=== PATIENT | male | born 1995 | race African-American/Black ===

== ENCOUNTER 2019-03-08 04:13 | Emergency (ER) | payer OTHER ==
[~2019-03-08] VITALS: Ht 188 cm; Wt 88.5 kg
[2019-03-08 04:08] VITALS: BP 150/89
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
[2019-03-08] MEDS ORDERED: Clindamycin 150mg cap ORAL ONE (04:15)
[2019-03-08] MEDS ORDERED: HYDROcodone/Acetamin 5/325 tab ORAL ONE (04:15)
[2019-03-08] MEDS ORDERED: CLINDAMYCIN HC300 MG ORAL (04:22)
[2019-03-08] MEDS ORDERED: IBUPROFEN600 MG ORAL (04:22)
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
[2019-03-08 04:30] VITALS: BP 145/88
--- NOTE | 2019-03-08 04:30 | NUR ---
Note undone in EDM - 03/08/19 at 0519 by DOMONIQUE ER DISCHARGE NOTE: Patient is cleared to be discharged per ERMD, pt is aox4, on room air, with stable vital signs. pt was given dc and prescription instructions, pt was able to verbalize understanding, pt id band removed. pt is able to ambulate with steady gait. pt took all belongings. pt states he wants to leave. pt was provided with appropriate clothing, provided pt with food. pt states that he does not need a cab and will walk. pt placed in log.
--- NOTE | 2019-03-08 04:30 | NUR ---
ER DISCHARGE NOTE: Patient is cleared to be discharged per ERMD, pt is aox4, on room air, with stable vital signs. pt was given dc and prescription instructions, pt was able to verbalize understanding, pt id band removed. pt is able to ambulate with steady gait. pt took all belongings. pt states he wants to leave. pt was provided with appropriate clothing, provided pt with food. pt states that he does not need a cab and has someone to pick him up. pt placed in log.
== END 2019-03-08 04:30 | disposition home or self-care (01) ==
LOC: EDBD 04:13 → EMR 04:25
DX: S01.511A Laceration without foreign body of lip, initial encounter (principal); X58.XXXA Exposure to other specified factors, initial encounter; Y92.9 Unspecified place or not applicable
CPT/HCPCS: 99282